=== PATIENT | male | born 1990 | race American Indian/Alaskan Native ===

== ENCOUNTER 2019-01-04 20:12 | Emergency (ER) | payer SELFPAY ==
[2019-01-05 02:14] VITALS: BP 124/61
--- NOTE | 2019-01-05 03:07 | Emergency Department Report ---
ED Back Pain/Injury HPI - General Time Seen by Provider: 01/05/19 02:30 Source: patient, family - History of Present Illness Initial Comments: Patient is a 28-year-old male who comes to the ER complaining of acute on chronic right leg pain. He is accompanied by his friend who is insisting that he get checked. He has had a previous meniscus injury to that leg. There has been no new trauma. Patient is ambulatory. He denies any other symptoms. He s tates this has been going on for months. And activity makes it worse especially when he is working. Rest makes it better. He has taken nothing at home to make it feel better. Place: home - Related Data Previous Rx's Medication Instructions Recorded Last Taken Type Cyclobenzaprine [Flexeril] 10 mg PO TID PRN #10 tablet 01/05/19 Unknown Rx Naproxen [Naprosyn] 500 mg PO BID PRN #20 tablet 01/05/19 Unknown Rx Allergies Allergy/AdvReac Type Severity Reaction Status Date / Time No Known Allergies Allergy Verified 01/05/19 02:36 ED Review of Systems ROS: Stated complaint: Other details as noted in HPI Comment: All other systems reviewed and negative ED Past Medical Hx - Past Medical History Medical history: no medical history meniscus injury rle ED Back Pain Physical Exam - Exam General: Vital signs noted. No distress. Alert and acting appropriately. Back/Abdomen: No Abdominal Tenderness, No Perithoracic Tenderness, No Perilumbar Tenderness, No Sacroiliac Tenderness, No Flank Tenderness, No Straight Leg Raise Pain Neuro: Yes Normal Sensation, Yes Normal DTR's, Yes Normal Gait, No Motor Weakness ED Course Vital Signs 01/05/19 02:12 Temperature 98.4 F Pulse Rate 51 L Respiratory 18 Rate Blood Pressure 124/61 [Right] O2 Sat by Pulse 100 Oximetry Ed Back Pain Tests - Tests Tests: Normal X Rays ED Medical Decision Making - Radiology Data Radiology results: report reviewed, image reviewed - Medical Decision Making xray neg dc home with dc plan of care and ortho follow up Vital Signs 01/05/19 02:12 Temperature 98.4 F Pulse Rate 51 L Respiratory 18 Rate Blood Pressure 124/61 [Right] O2 Sat by Pulse 100 Oximetry Critical care attestation.: If time is entered above; I have spent that time in minutes in the direct care of this critically ill patient, excluding procedure time. ED Disposition Clinical Impression: Leg pain Disposition: DC-01 TO HOME OR SELFCARE Is pt being admited?: No Does the pt Need Aspirin: No Condition: Stable Instructions: Lumbar Radiculopathy (ED) Additional Instructions: DIET TOLERATED MEDS ORDERED TODAY IN ER FOLLOW INSTRUCTIONS ON THE BOTTLE FOLLOW UP PCP WITHIN 48 HOURS TO ENSURE YOU ARE GETTING BETTER ACTIVITY TOLERATED MOTRIN OR TYLENOL FOR PAIN OR FEVER RETURN TO THE ER FOR WORSENING SYMPTOMS NOT RELIEVED BY YOUR MEDICATIONS. Referrals: BEAN TAVERAS MD [Primary Care Provider] - 3-5 Days ROX BAIN MD [Staff Physician] - 3-5 Days Time of Disposition: 03:07
[2019-01-05] MEDS ORDERED: IBUPROFEN PO ONE (03:12)
[2019-01-05] MEDS ORDERED: FLEXERIL PO ONE (03:12)
--- NOTE | 2019-01-05 03:27 | XRay Report ---
PROCEDURE: XR HIP 2-3V RT TECHNIQUE: Right hip radiographs, 4 views. HISTORY: pain COMPARISONS: None FINDINGS: Fracture (s) and/or Dislocation(s): None Joint space(s): Normal Soft tissues: Normal Bone mineralization: Normal Foreign bodies: None IMPRESSION: Normal Examination This document is electronically signed by Prosper Alberto MD., January 05 2019 03:26:07 AM ET
--- NOTE | 2019-01-05 03:41 | XRay Report ---
PROCEDURE: RIGHT FEMUR TECHNIQUE: RIGHT femur radiographs, AP and lateral views. CPT 11261 HISTORY: Trauma COMPARISONS: None . FINDINGS: Fracture (s) and/or Dislocation(s): None . Joint space(s): Normal . Soft tissues: Normal . Bone mineralization: Normal . Foreign bodies: None . IMPRESSION: Normal Examination . This document is electronically signed by Prosper Alberto MD., January 05 2019 03:39:31 AM ET
== END 2019-01-05 03:46 | disposition home or self-care (01) ==
LOC: ED 20:12
DX: M79.604 Pain in right leg (principal)